=== PATIENT | female | born 1960 | race Caucasian/White ===

== ENCOUNTER 2020-10-09 11:24 | Inpatient (IN) ==
[2020-10-09] MEDS ORDERED: Ondansetron 4 MG/2 ML VIAL ONE (11:27)
[2020-10-09] MEDS ORDERED: *HR* FentaNYL (PF) 100 MCG/2 ML VIAL ONE (11:27)
[2020-10-09] MEDS ORDERED: Lidocaine -MPF 4% 5 ML AMPUL ONE (11:27)
[2020-10-09] MEDS ORDERED: Lidocaine -MPF 2% 2 ML VIAL ONE (11:27)
[2020-10-09] MEDS ORDERED: Dexamethasone 4 MG/ML VIAL ONE (11:27)
[2020-10-09] MEDS ORDERED: *HR* Succinylcholine 200 MG/10 ML VIAL IVP ONE (11:27)
[2020-10-09] MEDS ORDERED: *HR* Rocuronium Bromide 50 MG/5 ML VIAL ONE (11:27)
[2020-10-09] MEDS ORDERED: *HR* Midazolam HCl 2 MG/2 ML VIAL ONE (11:28)
[2020-10-09] MEDS ORDERED: *HR* Propofol 200 MG/20 ML VIAL IVP ONE (11:28)
[2020-10-09] MEDS ORDERED: Vancomycin 1,000 MG VIAL ONE (11:29)
[2020-10-09] MEDS ORDERED: Ethanol\\Acetic Acid\\Na Ace\\Ben 1,000 ML IRRIG.SOLN IR ONE (11:29)
[2020-10-09] MEDS ORDERED: Clindamycin 900 MG/50 ML 900 MG/50 ML IV.SOLN IVPB ONE (11:47)
[2020-10-09] MEDS ORDERED: Ropivacaine/PF 0.5% 30 ML VIAL ONE (11:51)
[2020-10-09] MEDS ORDERED: ROPIVACAINE/PF/NS 0.25% 1 EACH SYRINGE INTRAART ONE (11:51)
[2020-10-09] MEDS ORDERED: Ringers Solution, Lactated 1,000 ML IVC SCH ×2 (12:00→14:53)
[2020-10-09] MEDS ORDERED: Acetaminophen IV 1,000 MG/100 ML INFUS..BTL IVPB ONE (12:06)
[2020-10-09] MEDS ORDERED: *HR* PHENYLEPHRINE 1,000 MCG/10 ML SYRINGE IVP ONE (13:12)
[2020-10-09] MEDS ORDERED: Povidone-Iodine 45 ML, Sodium Chloride IRRigation 1,000 ML IR ONE (13:25)
[2020-10-09 14:30] LABS: Hematocrit 38.6 % (35.3-44.9); Hemoglobin 12.5 g/dL (11.5-15.4)
[2020-10-09] MEDS ORDERED: *HR* HYDROmorphone PF 0.5 MG/0.5 ML SYRINGE IVP PRN (14:53)
[2020-10-09] MEDS ORDERED: Sennosides 8.6 MG TABLET PO PRN (14:53)
[2020-10-09] MEDS ORDERED: *HR* Dextrose 50 % in Water (Vial) 50 ML VIAL IVP PRN (14:53)
[2020-10-09] MEDS ORDERED: Promethazine 6.25 MG in Water for inj. (sterile) 20 ML IVPB PRN (14:53)
[2020-10-09] MEDS ORDERED: *HR* OxyCODONE Immed Rel 5 MG TABLET PO PRN ×2 (14:53)
[2020-10-09] MEDS ORDERED: MOM Conc 10 ML UD.LIQ PO PRN (14:53)
[2020-10-09] MEDS ORDERED: Dextrose Gel 15 GM/37.5 ML TUBE PO PRN ×2 (14:53)
[2020-10-09] MEDS ORDERED: *HR* OxyCODONE/APAP 5/325 TABLET PO PRN (14:53)
[2020-10-09] MEDS ORDERED: Ondansetron 4 MG/2 ML VIAL IVP PRN ×2 (14:53)
[2020-10-09] MEDS ORDERED: Naloxone 0.4 MG/ML INJ IVP PRN (14:53)
[2020-10-09] MEDS ORDERED: D5% in Water 1,000 ML IVC PRN (14:53)
[2020-10-09] MEDS ORDERED: Clindamycin 900 MG/50 ML 900 MG/50 ML IV.SOLN IVPB SCH (16:00)
[2020-10-09] MEDS ORDERED: Insulin LISPRO 300 UNITS/3 ML VIAL SQ SCH ×2 (16:30→21:00)
[2020-10-09 17:57] VITALS: BP 134/83
[2020-10-09] MEDS ORDERED: *HR* Enoxaparin 30 MG/0.3 ML SYRINGE SQ SCH ×2 (18:00)
== END 2020-10-09 17:59 | disposition home or self-care (01) | DRG 483 ==
LOC: SAMDAY 11:24 → 3NENU 14:41
PROVIDERS: ADMIT Orthopaedic Surgery; ATTEND Orthopaedic Surgery